=== PATIENT | female | born 1990 | race American Indian/Alaskan Native ===

== ENCOUNTER 2021-03-16 15:39 | Outpatient (CLI) | payer MEDICAID ==
[2021-03-16] MEDS ORDERED: LACTATED RINGERS 1,000 ML IV SCH (16:15)
[2021-03-16 16:23] VITALS: BP 136/60
== END 2021-03-16 17:05 | disposition home or self-care (01) ==
LOC: TRG 15:39 → APU 15:42 → TRG 17:05
PROVIDERS: ATTEND Obstetrics & Gynecology
DX: Z34.93 Encounter for supervision of normal pregnancy, unspecified, third trimester (principal); Z3A.30 30 weeks gestation of pregnancy
CPT/HCPCS: 59025

== ENCOUNTER 2021-03-27 13:08 | Outpatient (CLI) | payer MEDICAID ==
[2021-03-27 16:45] VITALS: BP 133/79
== END 2021-03-27 17:00 | disposition home or self-care (01) ==
LOC: TRG 13:08 → LAB 13:08 → APU 16:34 → TRG 17:00
PROVIDERS: ATTEND Obstetrics & Gynecology
DX: O26.893 Other specified pregnancy related conditions, third trimester (principal); Z3A.31 31 weeks gestation of pregnancy; Z67.11 Type A blood, Rh negative
CPT/HCPCS: 86850; 86900; 86901; 96372; J2790

== ENCOUNTER 2021-04-19 11:07 | Outpatient (CLI) | payer MEDICAID ==
[2021-04-19] MEDS ORDERED: LACTATED RINGERS 1,000 ML IV ONE (11:33)
[2021-04-19 12:37] LABS: Bilirubin,Urine NEG (Negative); Blood,Urine NEG (Negative); Color,Urine Yellow (Yellow); Mucus,Urine FEW /HPF; Protein,Urine <15 mg/dL mg/dL (Negative); Urobilinogen,Urine < 2.0 mg/dL (<2.0)
[2021-04-19 15:16] VITALS: BP 117/60
== END 2021-04-19 15:20 | disposition home or self-care (01) ==
LOC: TRG 11:07 → APU 11:11 → TRG 15:20
PROVIDERS: ATTEND Obstetrics & Gynecology
DX: O47.1 False labor at or after 37 completed weeks of gestation (principal); Z3A.35 35 weeks gestation of pregnancy
CPT/HCPCS: 59025; 81001

== ENCOUNTER 2021-05-05 11:31 | Outpatient (CLI) | payer MEDICAID ==
[2021-05-05] MEDS ORDERED: ACETAMINOPHEN 500 MG TAB PO ONE (11:51)
[2021-05-05] MEDS: LACTATED RINGERS 1,000 ML IV SCH ×3 (12:01→16:42)
[2021-05-05] MEDS ORDERED: ACETAMINOPHEN 325 MG TAB PO PRN (13:07)
[2021-05-05] MEDS ORDERED: DOCUSATE SODIUM 100 MG CAP PO PRN (14:07)
[2021-05-05 14:18] LABS: Basophils % (Auto) 0.1 % (0.0-1.8); Hematocrit 32.4 % (30.3-42.9); Hemoglobin 11.3 gm/dl (10.1-14.3); Lymphocytes # (Auto) 0.9 K/mm3 (1.2-5.4); Lymphocytes % (Auto) 5.8 % (13.4-35.0); Mean Corpuscular HGB Conc 35 % (30-34); Mean Corpuscular Volume 92 fl (79-97); Monocytes # (Auto) 1.2 K/mm3 (0.0-0.8); Monocytes % (Auto) 7.6 % (0.0-7.3); Platelet Count 159 K/mm3 (140-440); Red Blood Count 3.53 M/mm3 (3.65-5.03); Red Cell Distribution Width 14.2 % (13.2-15.2)
[2021-05-05 14:42] LABS: Alanine Aminotransferase 10 units/L (7-56); Albumin 3.5 g/dL (3.9-5); Blood Urea Nitrogen 8 mg/dL (7-17); Calcium 9.6 mg/dL (8.4-10.2); Hemolysis Index 3
[2021-05-05 14:46] LABS: BUN/Creatinine Ratio 11
[2021-05-05] MEDS ORDERED: BUTORPHANOL 2 MG/1 ML INJ IV PRN (16:03)
[2021-05-05 19:04] LABS: Bilirubin,Urine NEG (Negative); Blood,Urine SM (Negative); Color,Urine Straw (Yellow); Hyaline Casts,Urine 1 /LPF; Mucus,Urine FEW /HPF; Protein,Urine <15 mg/dL mg/dL (Negative); RBC,Urine < 1.0 /HPF (0.0-6.0); Urobilinogen,Urine < 2.0 mg/dL (<2.0); WBC,Urine < 1.0 /HPF (0.0-6.0)
[2021-05-06] MEDS: LACTATED RINGERS 1,000 ML IV SCH (00:26)
[2021-05-06] MEDS ORDERED: PRENATAL VIT27-FE FUMARATE-FOLIC ACID VIT TAB PO SCH (10:00)
--- NOTE | 2021-05-06 12:41 | Progress Note ---
Assessment and Plan 30-year-old female who presented with complaint of fever of unknown origin and cardiac. Symptoms have improved overnight. We will proceed with discharge of the patient and follow-up with her regular doctor as scheduled. Subjective - Subjective Date of service: 05/06/21 Principal diagnosis: Fever, tachcardia Interval history: Patient is a 30-year-old female who was admitted yesterday for observation secondary to fever of unknown origin and tachycardia. Patient has had no fevers and over 12 hours and the heart rate has been within normal range. Patient has no complaints on today. Her Covid swab is pending. Patient reports: movement normal Objective - Vital Signs Vital Signs: Vital Signs - 12hr 05/06/21 05/06/21 05/06/21 00:41 00:46 00:51 Temperature Pulse Rate 101 H 101 H 101 H Blood Pressure O2 Sat by Pulse 97 98 97 Oximetry 05/06/21 05/06/21 05/06/21 00:56 01:01 01:06 Temperature Pulse Rate 91 H 89 90 Blood Pressure O2 Sat by Pulse 98 98 97 Oximetry 05/06/21 05/06/21 05/06/21 01:11 01:14 01:16 Temperature Pulse Rate 92 H 80 90 Blood Pressure 91/50 O2 Sat by Pulse 97 96 Oximetry 05/06/21 05/06/21 05/06/21 01:21 01:26 01:31 Temperature Pulse Rate 94 H 88 89 Blood Pressure O2 Sat by Pulse 96 97 96 Oximetry 05/06/21 05/06/21 05/06/21 01:36 01:37 01:41 Temperature Pulse Rate 89 90 94 H Blood Pressure O2 Sat by Pulse 94 94 96 Oximetry 05/06/21 05/06/21 05/06/21 01:46 01:51 01:56 Temperature Pulse Rate 93 H 86 92 H Blood Pressure O2 Sat by Pulse 97 97 97 Oximetry 05/06/21 05/06/21 05/06/21 02:01 02:06 02:11 Temperature Pulse Rate 95 H 91 H 92 H Blood Pressure O2 Sat by Pulse 97 98 98 Oximetry 05/06/21 05/06/21 05/06/21 02:13 02:16 02:21 Temperature Pulse Rate 93 H 90 91 H Blood Pressure 101/50 O2 Sat by Pulse 96 96 Oximetry 05/06/21 05/06/2105/06/21 02:26 02:31 02:36 Temperature Pulse Rate 88 89 92 H Blood Pressure O2 Sat by Pulse 97 97 98 Oximetry 05/06/21 05/06/21 05/06/21 02:41 02:46 02:51 Temperature Pulse Rate 96 H 89 92 H Blood Pressure O2 Sat by Pulse 97 97 97 Oximetry 05/06/21 05/06/21 05/06/21 02:56 03:01 03:06 Temperature Pulse Rate 87 88 92 H Blood Pressure O2 Sat by Pulse 97 97 97 Oximetry 05/06/21 05/06/21 05/06/21 03:11 03:13 03:23 Temperature Pulse Rate 90 90 107 H Blood Pressure 106/54 O2 Sat by Pulse 97 98 Oximetry 05/06/21 05/06/21 05/06/21 03:28 03:33 03:38 Temperature Pulse Rate 100 H 90 99 H Blood Pressure O2 Sat by Pulse 96 98 96 Oximetry 05/06/21 05/06/21 05/06/21 03:43 03:45 03:48 Temperature 99.2 F Pulse Rate 94 H 97 H Blood Pressure O2 Sat by Pulse 97 97 Oximetry 05/06/21 05/06/21 05/06/21 03:53 03:58 04:03 Temperature Pulse Rate 95 H 92 H 95 H Blood Pressure O2 Sat by Pulse 97 96 97 Oximetry 05/06/21 05/06/21 05/06/21 04:08 04:13 04:18 Temperature Pulse Rate 92 H 87 91 H Blood Pressure 98/52 O2 Sat by Pulse 97 97 96 Oximetry 05/06/21 05/06/21 05/06/21 04:23 04:25 04:28 Temperature Pulse Rate 90 89 90 Blood Pressure O2 Sat by Pulse 95 93 95 Oximetry 05/06/21 05/06/21 05/06/21 04:31 04:33 04:36 Temperature Pulse Rate 91 H 91 H 91 H Blood Pressure O2 Sat by Pulse 94 95 94 Oximetry 05/06/21 05/06/21 05/06/21 04:38 04:42 04:43 Temperature Pulse Rate 90 87 90 Blood Pressure O2 Sat by Pulse 94 94 94 Oximetry 05/06/21 05/06/21 05/06/21 04:48 04:53 04:55 Temperature Pulse Rate 90 88 83 Blood Pressure O2 Sat by Pulse 94 96 94 Oximetry 05/06/21 05/06/21 05/06/21 04:58 05:00 05:03 Temperature Pulse Rate 89 88 85 Blood Pressure O2 Sat by Pulse 95 94 96 Oximetry 05/06/21 05/06/21 05/06/21 05:08 05:13 05:18 Temperature Pulse Rate 88 90 86 Blood Pressure 106/58 O2 Sat by Pulse 97 97 98 Oximetry 05/06/21 05/06/21 05/06/21 05:23 05:28 05:33 Temperature Pulse Rate 95 H 88 89 Blood Pressure O2 Sat by Pulse 97 97 98 Oximetry 05/06/21 05/06/21 05/06/21 05:37 05:38 05:43 Temperature Pulse Rate 100 H 100 H 93 H Blood Pressure O2 Sat by Pulse 94 98 96 Oximetry 05/06/21 05/06/21 05/06/21 05:48 05:53 05:58 Temperature Pulse Rate 97 H 99 H 95 H Blood Pressure O2 Sat by Pulse 98 97 97 Oximetry 05/06/21 05/06/21 05/06/21 06:03 06:08 06:13 Temperature Pulse Rate 95 H 97 H 82 Blood Pressure O2 Sat by Pulse 98 98 97 Oximetry 05/06/21 05/06/21 05/06/21 06:15 06:18 06:23 Temperature Pulse Rate 73 94 H 85 Blood Pressure 119/64 O2 Sat by Pulse 94 98 96 Oximetry 05/06/21 05/06/21 05/06/21 06:28 06:33 06:38 Temperature Pulse Rate 99 H 96 H 93 H Blood Pressure O2 Sat by Pulse 98 98 96 Oximetry 05/06/21 05/06/21 05/06/21 06:43 06:48 06:53 Temperature Pulse Rate 90 93 H 90 Blood Pressure O2 Sat by Pulse 97 97 97 Oximetry 05/06/21 05/06/21 05/06/21 06:58 07:03 07:08 Temperature Pulse Rate 90 88 79 Blood Pressure O2 Sat by Pulse 97 98 96 Oximetry 05/06/21 05/06/21 05/06/21 07:13 07:18 07:23 Temperature Pulse Rate 85 84 83 Blood Pressure 121/58 O2 Sat by Pulse 95 97 97 Oximetry 05/06/21 05/06/21 05/06/21 07:28 07:33 07:38 Temperature Pulse Rate 75 67 85 Blood Pressure O2 Sat by Pulse 97 97 98 Oximetry 05/06/21 05/06/21 05/06/21 08:11 08:13 08:14 Temperature Pulse Rate 88 88 92 H Blood Pressure 110/67 120/57 O2 Sat by Pulse 99 Oximetry 05/06/21 05/06/21 05/06/21 08:16 08:21 08:26 Temperature Pulse Rate 80 84 92 H Blood Pressure O2 Sat by Pulse 96 97 98 Oximetry 05/06/21 05/06/21 05/06/21 08:31 08:36 08:41 Temperature Pulse Rate 73 82 73 Blood Pressure O2 Sat by Pulse 98 98 97 Oximetry 05/06/21 05/06/21 05/06/21 08:46 08:51 08:56 Temperature Pulse Rate 75 86 76 Blood Pressure O2 Sat by Pulse 97 95 96 Oximetry 05/06/21 05/06/21 05/06/21 09:01 09:06 09:11 Temperature Pulse Rate 78 84 80 Blood Pressure O2 Sat by Pulse 96 95 99 Oximetry 05/06/21 05/06/21 05/06/21 09:15 09:16 09:21 Temperature Pulse Rate 76 78 72 Blood Pressure 97/54 O2 Sat by Pulse 96 97 Oximetry 05/06/21 05/06/21 05/06/21 09:26 09:28 09:31 Temperature Pulse Rate 82 69 79 Blood Pressure O2 Sat by Pulse 97 94 95 Oximetry 05/06/21 05/06/21 05/06/21 09:34 09:36 09:41 Temperature Pulse Rate 72 78 84 Blood Pressure O2 Sat by Pulse 93 96 98 Oximetry 05/06/21 05/06/21 05/06/21 09:46 09:51 09:56 Temperature Pulse Rate 78 82 81 Blood Pressure O2 Sat by Pulse 95 97 97 Oximetry 05/06/21 05/06/21 05/06/21 10:01 10:06 10:11 Temperature Pulse Rate 73 85 77 Blood Pressure O2 Sat by Pulse 97 98 98 Oximetry 05/06/21 05/06/21 05/06/21 10:13 10:16 10:21 Temperature Pulse Rate 80 70 79 Blood Pressure 105/51 O2 Sat by Pulse 99 97 Oximetry 05/06/21 05/06/21 05/06/21 10:26 10:31 10:36 Temperature Pulse Rate 73 72 78 Blood Pressure O2 Sat by Pulse 97 98 98 Oximetry 05/06/21 05/06/21 05/06/21 10:41 10:51 10:56 Temperature Pulse Rate 71 78 84 Blood Pressure O2 Sat by Pulse 98 98 97 Oximetry 05/06/21 05/06/21 05/06/21 11:01 11:06 11:11 Temperature Pulse Rate 75 74 78 Blood Pressure O2 Sat by Pulse 97 98 97 Oximetry 05/06/21 05/06/21 05/06/21 11:13 11:16 11:21 Temperature Pulse Rate 72 67 69 Blood Pressure 100/61 O2 Sat by Pulse 97 99 Oximetry 05/06/21 05/06/21 05/06/21 11:26 11:31 11:36 Temperature Pulse Rate 71 84 80 Blood Pressure O2 Sat by Pulse 99 99 98 Oximetry 05/06/21 05/06/21 05/06/21 11:41 11:46 11:51 Temperature Pulse Rate 82 66 75 Blood Pressure O2 Sat by Pulse 98 99 99 Oximetry 05/06/21 05/06/21 05/06/21 11:56 12:01 12:06 Temperature Pulse Rate 76 74 81 Blood Pressure O2 Sat by Pulse 99 98 98 Oximetry 05/06/21 05/06/21 05/06/21 12:11 12:13 12:16 Temperature Pulse Rate 73 75 81 Blood Pressure 103/64 O2 Sat by Pulse 99 99 Oximetry 05/06/21 05/06/21 05/06/21 12:21 12:26 12:31 Temperature Pulse Rate 75 70 72 Blood Pressure O2 Sat by Pulse 98 99 99 Oximetry 05/06/21 12:36 Temperature Pulse Rate 68 Blood Pressure O2 Sat by Pulse 98 Oximetry - Exam Lungs: Clear to auscultation, Normal air movement Abdomen: Present: normal appearance, soft, normal bowel sounds Uterus: Present: firm FHR: auscultation normal Cervical Dilatation: 0 - Labs Labs: Abnormal Labs 05/05/21 05/05/21 13:59 13:59 WBC 15.6 H RBC 3.53 L MCHC 35 H Lymph % (Auto) 5.8 L [place] % (Auto) 7.6 H Lymph # (Auto) 0.9 L [place] # (Auto) 1.2 H Seg Neutrophils % 86.5 H Seg Neutrophils # 13.4 H Sodium 132 L Carbon Dioxide 16 L Albumin 3.5 L Laboratory Results - last 24 hr 05/05/21 05/05/21 05/05/21 13:59 13:59 13:59 WBC 15.6 H RBC 3.53 L Hgb 11.3 Hct 32.4 MCV 92 MCH 32 MCHC 35 H RDW 14.2 Plt Count 159 Lymph % (Auto) 5.8 L [place] % (Auto) 7.6 H Eos % (Auto) 0.0 Baso % (Auto) 0.1 Lymph # (Auto) 0.9 L [place] # (Auto) 1.2 H Eos # (Auto) 0.0 Baso # (Auto) 0.0 Seg Neutrophils % 86.5 H Seg Neutrophils # 13.4 H Sodium 132 L Potassium 3.9 Chloride 99.5 Carbon Dioxide 16 L Anion Gap 20 BUN 8 Creatinine 0.7 Estimated GFR > 60 BUN/Creatinine Ratio 11 Glucose 77 Calcium 9.6 Total Bilirubin 0.40 AST 22 ALT 10 Alkaline Phosphatase 106 Total Protein 6.5 Albumin 3.5 L Albumin/Globulin Ratio 1.2 Urine Color Urine Turbidity Urine pH Ur Specific [place] Urine Protein Urine Glucose (UA) Urine Ketones Urine Blood Urine Nitrite Urine Bilirubin Urine Urobilinogen Ur Leukocyte Esterase Urine WBC (Auto) Urine RBC (Auto) U Epithel Cells (Auto) Hyaline Casts Urine Mucus Blood Type A NEGATIVE Antibody Screen Positive Antibody Identification Anti-D (Passively Aquired) 05/05/21 18:42 WBC RBC Hgb Hct MCV MCH MCHC RDW Plt Count Lymph % (Auto) [place] % (Auto) Eos % (Auto) Baso % (Auto) Lymph # (Auto) [place] # (Auto) Eos # (Auto) Baso # (Auto) Seg Neutrophils % Seg Neutrophils # Sodium Potassium Chloride Carbon Dioxide Anion Gap BUN Creatinine Estimated GFR BUN/Creatinine Ratio Glucose Calcium Total Bilirubin AST ALT Alkaline Phosphatase Total Protein Albumin Albumin/Globulin Ratio Urine Color Straw Urine Turbidity Clear Urine pH 6.0 Ur Specific [place] 1.004 Urine Protein <15 mg/dl Urine Glucose (UA) Neg Urine Ketones 20 Urine Blood Sm Urine Nitrite Neg Urine Bilirubin Neg Urine Urobilinogen < 2.0 Ur Leukocyte Esterase Neg Urine WBC (Auto) < 1.0 Urine RBC (Auto) < 1.0 U Epithel Cells (Auto) 3.0 Hyaline Casts 1 Urine Mucus Few Blood Type Antibody Screen Antibody Identification
--- NOTE | 2021-05-06 13:38 | Discharge Summary ---
Providers - Providers Date of Admission: 05/05/2021 Date of discharge: 05/06/21 Attending physician: ROSAURA RAMIREZ Primary care physician: ROSAURA RAMIREZ Hospitalization Reason for admission: other (fever of unknown origin, tachycardia) Episiotomy: none Other procedures: none complications: none Discharge diagnosis: other (fever) Hospital course: resolved Condition at discharge: Stable Disposition: DC-01 TO HOME OR SELFCARE Plan - Provider Discharge Summary Activity: routine Diet: routine Instructions: routine Additional instructions: [] Smoking cessation referral if applicable(refer to patient education folder for contact #) [] Refer to [facility]'s [facility] Booklet Call your doctor immediately for: * Fever > 100.5 * Heavy vaginal bleeding ( >1 pad per hour) * Severe persistent headache * Shortness of breath * Reddened, hot, painful area to leg or breast * Drainage or odor from incision. * Keep incision clean and dry at all times and follow doctor's instructions regarding bathing/showering - Follow up plan Follow up: ROSAURA RAMIREZ MD [Primary Care Provider] - 7 Days
[2021-05-06 14:05] VITALS: BP 111/65
== END 2021-05-06 15:06 | disposition home or self-care (01) ==
LOC: TRG 11:31 → APU 11:33 → LD 13:37 → TRG 05-06 15:06
PROVIDERS: ATTEND Obstetrics & Gynecology
DX: O62.9 Abnormality of forces of labor, unspecified (principal); O24.410 Gestational diabetes mellitus in pregnancy, diet controlled; O26.893 Other specified pregnancy related conditions, third trimester; R68.83 Chills (without fever); O36.8330 Maternal care for abnormalities of the fetal heart rate or rhythm, third trimester, not applicable or unspecified; Z3A.37 37 weeks gestation of pregnancy; Z20.822 Contact with and (suspected) exposure to COVID-19
CPT/HCPCS: 36415; 80053; 81001; 85025; 86850; 86870; 86900; 86901; 87040; 96360; 96361; J7120; U0003

== ENCOUNTER 2021-05-09 20:17 | Inpatient (IN) | payer MEDICAID ==
[2021-05-09] MEDS ORDERED: ePHEDrine SULFATE 50 MG/1 ML INJ IV PRN (21:21)
[2021-05-09] MEDS ORDERED: DINOPROSTONE 10 MG VAG SUPP VG ONE (21:21)
[2021-05-09] MEDS ORDERED: miSOPROStol 200 MCG TAB PR PRN (21:21)
[2021-05-09] MEDS ORDERED: NALOXONE 0.4 MG/1 ML INJ IV PRN (21:21)
[2021-05-09] MEDS ORDERED: fentaNYL 100 MCG/2 ML INJ IV PRN (21:21)
[2021-05-09] MEDS ORDERED: OXYTOCIN 10 UNIT/1 ML INJ IM PRN (21:21)
[2021-05-09] MEDS ORDERED: METHYLERGONOVINE MALEATE 0.2 MG/ML VIAL IM PRN (21:21)
[2021-05-09] MEDS ORDERED: LOPERAMIDE 2 MG CAP PO PRN (21:21)
[2021-05-09] MEDS ORDERED: MINERAL OIL 30 ML ORAL LIQD PO PRN (21:21)
[2021-05-09] MEDS ORDERED: ONDANSETRON 4 MG/2 ML INJ IV PRN (21:21)
[2021-05-09] MEDS ORDERED: CARBOPROST TROMETHAMINE 250 MCG/1 ML INJ IM PRN (21:21)
[2021-05-09] MEDS ORDERED: TERBUTALINE 1 MG/1 ML INJ SUB-Q PRN ×2 (21:21→21:39)
[2021-05-09] MEDS ORDERED: BUTORPHANOL 2 MG/1 ML INJ IV PRN ×2 (21:21)
[2021-05-09] MEDS ORDERED: ACETAMINOPHEN 325 MG TAB PO PRN (21:21)
[2021-05-09] MEDS ORDERED: LIDOCAINE (2%) 20 MG/1 ML VIAL 20 ML MDV INFILTRATI ONE (21:21)
[2021-05-09] MEDS ORDERED: INSULIN REGULAR, HUMAN 100 UNITS/1 ML SUB-Q PRN (21:26)
[2021-05-09] MEDS ORDERED: DEXTROSE 50% IN WATER (25GM) 50 ML SYRINGE IV PRN (21:26)
[2021-05-09] MEDS ORDERED: AMPICILLIN/NS 2 GM/100 ML 2 GM/100 ML BAG IV ONE (21:39)
[2021-05-09 21:41] LABS: Hematocrit 33.3 % (30.3-42.9); Hemoglobin 11.3 gm/dl (10.1-14.3); Mean Corpuscular HGB Conc 34 % (30-34); Mean Corpuscular Volume 93 fl (79-97); Platelet Count 177 K/mm3 (140-440); Red Blood Count 3.59 M/mm3 (3.65-5.03); Red Cell Distribution Width 14.1 % (13.2-15.2)
[2021-05-09] MEDS: LACTATED RINGERS 1,000 ML IV SCH (22:00)
[2021-05-09] MEDS ORDERED: OXYTOCIN DRIP 30 UNITS/500 ML BAG IV SCH ×3 (22:00)
[2021-05-10] MEDS ORDERED: AMPICILLIN/NS 1 GM/50 ML 1 GM/50 ML BAG IV SCH (02:00)
--- NOTE | 2021-05-10 15:14 | Progress Note ---
Assessment and Plan HD 1 for this induction for type 2 dm. Pt doing well. Pt received cervidil overnight and changed cervix from closed 1 cm dilated. Pt may shower and eat. She is now going to start on pitocin. Subjective - Subjective Date of service: 05/10/21 Principal diagnosis: type 2 diabetes Patient reports: contractions Objective - Vital Signs Vital Signs: Vital Signs - 12hr 05/10/21 05/10/21 05/10/21 03:08 03:20 07:19 Temperature 97.5 F L Pulse Rate 60 66 Respiratory 18 Rate Blood Pressure 107/59 109/64 05/10/21 07:56 Temperature 97.8 F Pulse Rate Respiratory Rate Blood Pressure - Exam Breasts: deferred Cardiovascular: Regular rate, Normal S1, Normal S2 Lungs: Clear to auscultation, Normal air movement Abdomen: Present: normal appearance, soft, normal bowel sounds Uterus: Present: normal, firm FHR: auscultation normal Cervical Dilatation: 1 Cervical Effacement Percentage: 50 Uterine Contraction Pattern: Irregular Uterine Contraction Intensity: Mild - Labs Labs: Abnormal Labs 05/09/21 21:15 RBC 3.59 L Laboratory Results - last 24 hr 05/09/21 05/09/21 05/09/21 21:15 21:15 21:25 WBC 8.9 RBC 3.59 L Hgb 11.3 Hct 33.3 MCV 93 MCH 32 MCHC 34 RDW 14.1 Plt Count 177 POC Glucose 89 Syphilis IgG Antibody Nonreactive Blood Type Antibody Screen Antibody Identification 05/09/21 05/10/21 05/10/21 23:19 03:10 06:31 WBC RBC Hgb Hct MCV MCH MCHC RDW Plt Count POC Glucose 70 72 Syphilis IgG Antibody Blood Type A NEGATIVE Antibody Screen Positive Antibody Identification Anti-D (Passively Aquired) 05/10/21 05/10/21 10:12 14:44 WBC RBC Hgb Hct MCV MCH MCHC RDW Plt Count POC Glucose 75 99 Syphilis IgG Antibody Blood Type Antibody Screen Antibody Identification
[2021-05-10] MEDS: LACTATED RINGERS 1,000 ML IV SCH (22:08)
[2021-05-11] MEDS: LACTATED RINGERS 1,000 ML IV SCH (12:28)
--- NOTE | 2021-05-11 12:59 | Progress Note ---
Assessment and Plan - Patient Problems (1) Encounter for induction of labor Current Visit: Yes Status: Acute Plan to address problem: Stop Pitocin May shower and eat, then Initiate Cytotec 50 mg po every 4 hrs x 4 doses as tolerated Pain meds as desired Anticipate (2) Gestational diabetes Current Visit: Yes Status: Acute Qualifiers: Gestational diabetes mellitus control: diet-controlled Trimester: third trimester Qualified Code(s): O24.410 - Gestational diabetes mellitus in , diet controlled Plan to address problem: Continue to monitor blood glucose levels per orders Subjective - Subjective Date of service: 05/11/21 Principal diagnosis: IOL secondary to type 2 diabetes Interval history: HD 1 for this induction for type 2 dm. Pt doing well. Pt received cervidil overnight and changed cervix from closed 1 cm dilated. Pt may shower and eat. She is now on pitocin. Patient reports: movement normal, contractions (irregular), no new complaints, no loss of fluid, no vaginal bleeding Objective - Vital Signs Vital Signs: Vital Signs - 12hr 05/11/21 05/11/21 05/11/21 01:00 01:05 01:10 Temperature Pulse Rate 54 L 67 64 Respiratory Rate Blood Pressure Blood Pressure [Left] O2 Sat by Pulse 98 98 99 Oximetry 05/11/21 05/11/21 05/11/21 01:15 01:20 01:24 Temperature 98.2 F Pulse Rate 53 L 57 L Respiratory 20 Rate Blood Pressure Blood Pressure [Left] O2 Sat by Pulse 100 99 Oximetry 05/11/21 05/11/21 05/11/21 01:25 01:30 01:35 Temperature Pulse Rate 56 L 56 L 56 L Respiratory Rate Blood Pressure Blood Pressure [Left] O2 Sat by Pulse 99 99 99 Oximetry 05/11/21 05/11/21 05/11/21 01:40 01:45 01:50 Temperature Pulse Rate 62 56 L 58 L Respiratory Rate Blood Pressure Blood Pressure [Left] O2 Sat by Pulse 98 98 99 Oximetry 05/11/21 05/11/21 05/11/21 01:55 02:00 02:05 Temperature Pulse Rate 60 62 74 Respiratory Rate Blood Pressure Blood Pressure [Left] O2 Sat by Pulse 98 98 100 Oximetry 05/11/21 05/11/21 05/11/21 02:10 02:15 02:20 Temperature Pulse Rate 60 57 L 54 L Respiratory Rate Blood Pressure 99/63 Blood Pressure [Left] O2 Sat by Pulse 98 98 99 Oximetry 05/11/21 05/11/21 05/11/21 02:25 02:30 02:35 Temperature Pulse Rate 50 L 64 60 Respiratory Rate Blood Pressure Blood Pressure [Left] O2 Sat by Pulse 98 97 98 Oximetry 05/11/21 05/11/21 05/11/21 02:40 02:45 02:50 Temperature Pulse Rate 63 67 65 Respiratory Rate Blood Pressure Blood Pressure [Left] O2 Sat by Pulse 98 97 97 Oximetry 05/11/21 05/11/21 05/11/21 02:55 03:00 03:05 Temperature Pulse Rate 67 68 60 Respiratory Rate Blood Pressure Blood Pressure [Left] O2 Sat by Pulse 97 98 98 Oximetry 05/11/21 05/11/21 05/11/21 03:10 03:15 03:20 Temperature Pulse Rate 57 L 54 L 61 Respiratory Rate Blood Pressure Blood Pressure [Left] O2 Sat by Pulse 98 97 98 Oximetry 05/11/21 05/11/21 05/11/21 03:25 03:30 03:35 Temperature Pulse Rate 64 58 L 59 L Respiratory Rate Blood Pressure Blood Pressure [Left] O2 Sat by Pulse 98 98 98 Oximetry 05/11/21 05/11/21 05/11/21 03:40 03:45 03:50 Temperature Pulse Rate 75 62 51 L Respiratory Rate Blood Pressure 113/59 Blood Pressure [Left] O2 Sat by Pulse 98 97 98 Oximetry 05/11/21 05/11/21 05/11/21 03:55 03:59 04:00 Temperature Pulse Rate 82 58 L 70 Respiratory Rate Blood Pressure Blood Pressure [Left] O2 Sat by Pulse 98 94 97 Oximetry 05/11/21 05/11/21 05/11/21 04:05 04:10 04:15 Temperature Pulse Rate 74 65 63 Respiratory Rate Blood Pressure Blood Pressure [Left] O2 Sat by Pulse 98 98 98 Oximetry 05/11/21 05/11/21 05/11/21 04:20 04:25 04:30 Temperature Pulse Rate 58 L 73 73 Respiratory Rate Blood Pressure Blood Pressure [Left] O2 Sat by Pulse 98 98 98 Oximetry 05/11/21 05/11/21 05/11/21 04:35 04:40 04:45 Temperature Pulse Rate 69 67 60 Respiratory Rate Blood Pressure Blood Pressure [Left] O2 Sat by Pulse 98 98 98 Oximetry 05/11/21 05/11/21 05/11/21 04:50 04:55 05:00 Temperature Pulse Rate 69 55 L 60 Respiratory Rate Blood Pressure Blood Pressure [Left] O2 Sat by Pulse 98 98 98 Oximetry 05/11/21 05/11/21 05/11/21 05:05 05:10 05:15 Temperature Pulse Rate 54 L 65 57 L Respiratory Rate Blood Pressure Blood Pressure [Left] O2 Sat by Pulse 99 99 100 Oximetry 05/11/21 05/11/21 05/11/21 05:20 05:25 05:30 Temperature Pulse Rate 57 L 55 L 54 L Respiratory Rate Blood Pressure 106/56 Blood Pressure [Left] O2 Sat by Pulse 99 98 99 Oximetry 05/11/21 05/11/21 05/11/21 05:35 05:40 05:45 Temperature Pulse Rate 63 56 L 65 Respiratory Rate Blood Pressure Blood Pressure [Left] O2 Sat by Pulse 98 98 98 Oximetry 05/11/21 05/11/21 05/11/21 05:50 05:55 06:00 Temperature Pulse Rate 53 L 57 L 74 Respiratory Rate Blood Pressure Blood Pressure [Left] O2 Sat by Pulse 98 97 99 Oximetry 05/11/21 05/11/21 05/11/21 06:05 06:10 06:15 Temperature Pulse Rate 63 60 56 L Respiratory Rate Blood Pressure Blood Pressure [Left] O2 Sat by Pulse 98 98 98 Oximetry 05/11/21 05/11/21 05/11/21 06:20 06:24 06:25 Temperature Pulse Rate 63 61 67 Respiratory Rate Blood Pressure Blood Pressure [Left] O2 Sat by Pulse 97 89 99 Oximetry 05/11/21 05/11/21 05/11/21 06:30 06:35 06:46 Temperature Pulse Rate 72 67 84 Respiratory Rate Blood Pressure Blood Pressure [Left] O2 Sat by Pulse 98 98 100 Oximetry 05/11/21 05/11/21 05/11/21 06:50 06:51 06:56 Temperature Pulse Rate 83 97 H 71 Respiratory Rate Blood Pressure 117/65 Blood Pressure [Left] O2 Sat by Pulse 99 99 Oximetry 05/11/21 05/11/21 05/11/21 07:01 07:06 07:11 Temperature Pulse Rate 60 56 L 56 L Respiratory Rate Blood Pressure Blood Pressure [Left] O2 Sat by Pulse 100 98 99 Oximetry 05/11/21 05/11/21 05/11/21 07:16 07:17 07:22 Temperature 97.9 F Pulse Rate 98 H 63 77 Respiratory 14 Rate Blood Pressure 109/59 Blood Pressure 109/59 [Left] O2 Sat by Pulse 99 99 100 Oximetry 05/11/21 05/11/21 05/11/21 07:27 07:32 07:37 Temperature Pulse Rate 54 L 56 L 52 L Respiratory Rate Blood Pressure Blood Pressure [Left] O2 Sat by Pulse 99 99 99 Oximetry 05/11/21 05/11/21 05/11/21 07:42 07:47 07:52 Temperature Pulse Rate 69 65 60 Respiratory Rate Blood Pressure Blood Pressure [Left] O2 Sat by Pulse 98 99 99 Oximetry 05/11/21 05/11/21 05/11/21 07:57 08:02 08:07 Temperature Pulse Rate 58 L 52 L 52 L Respiratory Rate Blood Pressure Blood Pressure [Left] O2 Sat by Pulse 99 100 99 Oximetry 05/11/21 05/11/21 05/11/21 08:12 08:17 08:20 Temperature Pulse Rate 61 55 L 63 Respiratory Rate Blood Pressure 110/59 Blood Pressure [Left] O2 Sat by Pulse 99 99 Oximetry 05/11/21 05/11/21 05/11/21 08:22 08:27 08:32 Temperature Pulse Rate 59 L 58 L 67 Respiratory Rate Blood Pressure Blood Pressure [Left] O2 Sat by Pulse 98 98 100 Oximetry 05/11/21 05/11/21 05/11/21 08:37 08:42 08:47 Temperature Pulse Rate 56 L 59 L 54 L Respiratory Rate Blood Pressure Blood Pressure [Left] O2 Sat by Pulse 98 99 98 Oximetry 05/11/21 05/11/21 05/11/21 08:52 08:57 09:02 Temperature Pulse Rate 52 L 54 L 51 L Respiratory Rate Blood Pressure Blood Pressure [Left] O2 Sat by Pulse 98 99 97 Oximetry 05/11/21 05/11/21 05/11/21 09:07 09:12 09:17 Temperature Pulse Rate 51 L 53 L 54 L Respiratory Rate Blood Pressure Blood Pressure [Left] O2 Sat by Pulse 98 98 100 Oximetry 05/11/21 05/11/21 05/11/21 09:22 09:27 09:32 Temperature Pulse Rate 48 L 49 L 55 L Respiratory Rate Blood Pressure Blood Pressure [Left] O2 Sat by Pulse 98 98 97 Oximetry 05/11/21 05/11/21 05/11/21 09:37 09:42 09:47 Temperature Pulse Rate 51 L 53 L 56 L Respiratory Rate Blood Pressure Blood Pressure [Left] O2 Sat by Pulse 98 98 98 Oximetry 05/11/21 05/11/21 05/11/21 09:51 09:52 09:57 Temperature Pulse Rate 53 L 59 L 61 Respiratory Rate Blood Pressure 109/73 Blood Pressure [Left] O2 Sat by Pulse 98 99 Oximetry 05/11/21 05/11/21 05/11/21 10:02 10:07 10:12 Temperature Pulse Rate 64 55 L 54 L Respiratory Rate Blood Pressure Blood Pressure [Left] O2 Sat by Pulse 99 100 99 Oximetry 05/11/21 05/11/21 05/11/21 10:17 10:23 10:28 Temperature Pulse Rate 53 L 52 L 56 L Respiratory Rate Blood Pressure Blood Pressure [Left] O2 Sat by Pulse 100 100 99 Oximetry 05/11/21 05/11/21 05/11/21 10:33 10:38 10:43 Temperature Pulse Rate 61 67 61 Respiratory Rate Blood Pressure Blood Pressure [Left] O2 Sat by Pulse 100 100 99 Oximetry 05/11/21 05/11/21 05/11/21 10:48 10:53 10:58 Temperature Pulse Rate 60 75 57 L Respiratory Rate Blood Pressure Blood Pressure [Left] O2 Sat by Pulse 98 99 99 Oximetry 05/11/21 05/11/21 05/11/21 11:03 11:08 11:13 Temperature Pulse Rate 57 L 56 L 56 L Respiratory Rate Blood Pressure Blood Pressure [Left] O2 Sat by Pulse 99 99 99 Oximetry 05/11/21 05/11/21 05/11/21 11:18 11:20 11:23 Temperature Pulse Rate 55 L 60 66 Respiratory Rate Blood Pressure 127/78 Blood Pressure [Left] O2 Sat by Pulse 98 100 Oximetry 05/11/21 05/11/21 05/11/21 11:28 11:33 11:38 Temperature Pulse Rate 60 58 L 59 L Respiratory Rate Blood Pressure Blood Pressure [Left] O2 Sat by Pulse 99 99 99 Oximetry 05/11/21 05/11/21 05/11/21 11:43 11:48 11:53 Temperature Pulse Rate 59 L 61 59 L Respiratory Rate Blood Pressure Blood Pressure [Left] O2 Sat by Pulse 98 99 99 Oximetry 05/11/21 05/11/21 05/11/21 11:58 12:03 12:08 Temperature Pulse Rate 55 L 59 L 59 L Respiratory Rate Blood Pressure Blood Pressure [Left] O2 Sat by Pulse 99 99 98 Oximetry 05/11/21 05/11/21 05/11/21 12:13 12:18 12:23 Temperature Pulse Rate 59 L 59 L 56 L Respiratory Rate Blood Pressure Blood Pressure [Left] O2 Sat by Pulse 99 98 98 Oximetry 05/11/21 05/11/21 05/11/21 12:28 12:33 12:38 Temperature Pulse Rate 64 60 90 Respiratory Rate Blood Pressure Blood Pressure [Left] O2 Sat by Pulse 100 100 99 Oximetry 05/11/21 05/11/21 05/11/21 12:43 12:48 12:50 Temperature Pulse Rate 60 61 55 L Respiratory Rate Blood Pressure 118/72 Blood Pressure [Left] O2 Sat by Pulse 99 98 Oximetry 05/11/21 12:53 Temperature Pulse Rate 54 L Respiratory Rate Blood Pressure Blood Pressure [Left] O2 Sat by Pulse 98 Oximetry - Exam Breasts: deferred Cardiovascular: Regular rate Lungs: Normal air movement FHR: category 1 Uterine Contraction Monitor Mode: External Cervical Dilatation: 1.5 (per RN) Cervical Effacement Percentage: 60 station: -3 Uterine Contraction Frequency (min): 3-5 Uterine Contraction Pattern: Irregular Uterine Tone Measurement Phase: Resting Uterine Contraction Intensity: Mild Extremities: edema - Labs Labs: Abnormal Labs 05/09/21 05/11/21 21:15 05:05 RBC 3.59 L POC Glucose 69 L Laboratory Results - last 24 hr 05/10/21 05/10/21 05/10/21 14:44 21:04 Unknown POC Glucose 99 82 Coronavirus (PCR) Negative 05/11/21 05/11/21 05/11/21 01:22 05:05 10:48 POC Glucose 77 69 L 97 Coronavirus (PCR)
[2021-05-11] MEDS: miSOPROStol 25 MCG TAB PO PRN ×3 (14:50→22:52)
[2021-05-12] MEDS: LACTATED RINGERS 1,000 ML IV SCH ×2 (00:56→11:09)
[2021-05-12] MEDS: miSOPROStol 25 MCG TAB PO PRN (02:15)
--- NOTE | 2021-05-12 15:59 | History and Physical Report ---
History of Present Illness Date of examination: 05/12/21 Date of admission: 05/09/21 20:21 Chief complaint: scheduled induction for gestational diabetes History of present illness: Pt is a 30 year old -[place] female primigravida RAEGAN 05/23/21 at 38w3d who presented on 05/09/21 for induction of labor secondary to gestational diabetes. She has had care at [facility] with comanagment by [facility] complicated by aforementioned gestational diabetes- diet controlled, palpitations when supine s/p Cardiology consult, RH negative status with Rhogam administration on 03/23/21 and GBS positive status. She has received cervidil, low dose pitocin, and four doses of cytotec for cervical ripening since admission. Past History Past Medical History: diabetes (gestational, diet controlled) Past Surgical History: no surgical history Family/Genetic History: diabetes, heart disease Social history: - Obstetrical History Expected Date of Delivery: 05/23/21 Actual Gestation: 38 Week(s) 3 Day(s) : 1 Medications and Allergies Allergies Allergy/AdvReac Type Severity Reaction Status Date / Time No Known Allergies Allergy Verified 05/05/21 12:06 Home Medications Medication Instructions Recorded Confirmed Last Taken Type No Known Home Medications [No 05/10/21 05/10/21 Unknown History Reported Home Medications] Active Meds: Active Medications Acetaminophen (Acetaminophen 325 Mg Tab) 650 mg PO Q4H PRN PRN Reason: Pain, Mild (1-3) Butorphanol Tartrate (Butorphanol 2 Mg/1 Ml Inj) 1 mg IV Q2H PRN PRN Reason: Pain, Moderate(4-6) LABOR PAIN Last Admin: 05/10/21 05:12 Dose: 1 mg Documented by: Butorphanol Tartrate (Butorphanol 2 Mg/1 Ml Inj) 2 mg IV Q2H PRN PRN Reason: Pain , Severe (7-10) Carboprost Tromethamine (Carboprost Tromethamine 250 Mcg/1 Ml Inj) 250 mcg IM ONCE PRN PRN Reason: Uterine Bleeding Dextrose (Dextrose 50% In Water (25gm) 50 Ml Syringe) 50 ml IV Q30MIN PRN; Protocol PRN Reason: Hypoglycemia Ephedrine Sulfate (Ephedrine Sulfate 50 Mg/1 Ml Inj) 10 mg IV Q2M PRN PRN Reason: Hypotension Fentanyl (Fentanyl 100 Mcg/2 Ml Inj) 100 mcg IV Q2H PRN PRN Reason: Pain,Severe (7-10) LABOR PAIN Lactated Ringer's (Lactated Ringers) 1,000 mls @ 125 mls/hr IV DIRECT NUSRAT Last Admin: 05/12/21 11:09 Dose: 125 mls/hr Documented by: Oxytocin/Sodium Chloride (Pitocin/Ns 30 Unit/500ml) 30 units in 500 mls @ 40 mls/hr IV TITR NUSRAT; Protocol Ampicillin Sodium (Ampicillin/Ns 1 Gm/50 Ml) 1 gm in 50 mls @ 100 mls/hr IV Q4H NUSRAT; Protocol Last Admin: 05/10/21 14:40 Dose: 100 mls/hr Documented by: Insulin Human Regular (Insulin Regular, Human 100 Units/1 Ml) 0 units SUB-Q Q4H PRN; Protocol PRN Reason: Hyperglycemia Loperamide HCl (Loperamide 2 Mg Cap) 2 mg PO ONCE PRN PRN Reason: give with Hemabate Methylergonovine Maleate (Methylergonovine Maleate 0.2 Mg/Ml Vial) 0.2 mg IM ONCE PRN PRN Reason: Uterine Bleeding Mineral Oil (Mineral Oil 30 Ml Oral Liqd) 30 ml PO QHS PRN PRN Reason: Constipation Misoprostol (Misoprostol 200 Mcg Tab) 800 mcg WI ONCE PRN PRN Reason: Uterine Bleeding Naloxone HCl (Naloxone 0.4 Mg/1 Ml Inj) 0.1 mg IV Q2MIN PRN PRN Reason: Res Rate </= 8 or 02 SAT < 92% Ondansetron HCl (Ondansetron 4 Mg/2 Ml Inj) 4 mg IV Q8H PRN PRN Reason: Nausea And Vomiting Oxytocin (Oxytocin 10 Unit/1 Ml Inj) 10 unit IM ONCE PRN PRN Reason: Uterine Bleeding Terbutaline Sulfate (Terbutaline 1 Mg/1 Ml Inj) 0.25 mg SUB-Q ONCE PRN PRN Reason: Hyperstimulation/Hypertonicity Review of Systems All systems: negative - Vital Signs Vital signs: Vital Signs Pulse BP 69 126/62 05/09/21 20:48 05/09/21 20:48 Temp Pulse Resp BP Pulse Ox 98.1 F 57 L 16 113/55 98 05/11/21 23:46 05/12/21 15:58 05/11/21 23:46 05/12/21 06:26 05/12/21 15:58 - Physical Exam Breasts: Positive: deferred Abdomen: Positive: soft (obese, gravid ) Uterus: Positive: enlarged (gravid ) Extremities: Positive: edema (trace) - Obstetrical FHR: auscultation normal Uterine Contraction Monitor Mode: External Cervical Dilatation: 0.5 Cervical Effacement Percentage: 50 station: -3 Uterine Contraction Pattern: Irregular Uterine Tone Measurement Phase: Resting Uterine Contraction Intensity: Mild Results Result Diagrams: 05/09/21 21:15 All other labs normal. Assessment and Plan A: IUP at 38w3d Gestational diabetes A1 Unfavorable Cervix despite multiple ripening agents H/o palpitations when supine s/p Cardiology consult RH negative status with Rhogam administration on 03/23/21 GBS positive P: Continue routine intrapartum care Cook cervical ripening balloon placed Initiate low dose pitocin Continue GBS prophylaxis Closely monitor maternal and status Continue q 4 accucheks in latent labor, and q 1 hr accucheks in active labor
[2021-05-13] MEDS ORDERED: METOCLOPRAMIDE 10 MG/2 ML INJ IV ONE (04:57)
[2021-05-13] MEDS ORDERED: FAMOTIDINE 20 MG/2 ML INJ IV ONE ×2 (04:57→07:22)
[2021-05-13] MEDS ORDERED: BICITRA ORAL LIQD 30ML PO ONE (04:57)
[2021-05-13] MEDS ORDERED: OXYTOCIN DRIP 30 UNITS/500 ML BAG IV SCH ×2 (05:00→13:26)
[2021-05-13] MEDS ORDERED: LACTATED RINGERS 1,000 ML IV SCH (05:00)
[2021-05-13 06:24] LABS: Basophils % (Auto) 0.2 % (0.0-1.8); Eosinophils % (Auto) 0.1 % (0.0-4.3); Hematocrit 31.4 % (30.3-42.9); Hemoglobin 10.6 gm/dl (10.1-14.3); Lymphocytes # (Auto) 1.6 K/mm3 (1.2-5.4); Lymphocytes % (Auto) 14.2 % (13.4-35.0); Mean Corpuscular HGB Conc 34 % (30-34); Mean Corpuscular Volume 92 fl (79-97); Monocytes # (Auto) 0.9 K/mm3 (0.0-0.8); Monocytes % (Auto) 7.7 % (0.0-7.3); Platelet Count 151 K/mm3 (140-440); Red Blood Count 3.41 M/mm3 (3.65-5.03)
[2021-05-13] MEDS: LACTATED RINGERS 1,000 ML IV SCH (06:59)
[2021-05-13] MEDS ORDERED: SODIUM CHLORIDE 0.9% 500 ML 500 ML IV SCH (07:00)
[2021-05-13] MEDS ORDERED: CARBOPROST TROMETHAMINE 250 MCG/1 ML INJ IM SCH (07:00)
[2021-05-13] MEDS ORDERED: ceFAZolin/Water 2 GM/20 ML 2 GM/20 ML SYRINGE IV NR (07:00)
[2021-05-13] MEDS ORDERED: BICITRA ORAL LIQD 30ML ONE (07:21)
[2021-05-13] MEDS ORDERED: METOCLOPRAMIDE 10 MG/2 ML INJ ONE (07:22)
--- NOTE | 2021-05-13 07:29 | Anesthesia Day of Surgery ---
Anesthesia Day of Surgery - Day of Surgery Patient Examined: Yes Patient H&P Reviewed: Yes Patient is NPO: Yes
--- NOTE | 2021-05-13 07:29 | Anesthesia Consultation ---
Anesthesia Consult and Med Hx Date of service: 05/13/21 - Airway Anesthetic Teeth Evaluation: Good ROM Head & Neck: Adequate Mental/Hyoid Distance: Adequate Mallampati Class: Class II Intubation Access Assessment: Probably Good - Pulmonary Exam CTA: Yes - Cardiac Exam Cardiac Exam: RRR - Pre-Operative Health Status ASA Pre-Surgery Classification: ASA3 Proposed Anesthetic Plan: Spinal - Pulmonary Hx Asthma: No COPD: No Hx Pneumonia: No - Cardiovascular System Hx Hypertension: No - Central Nervous System Hx Seizures: No (h/o of convulsions 2007) Hx Psychiatric Problems: No - Endocrine Hx Renal Disease: No Hx End Stage Renal Disease: No Hx Non-Insulin Dependent Diabetes: Yes Hx Hypothyroidism: No Hx Hyperthyroidism: No - Hematic Hx Anemia: No Hx Sickle Cell Disease: No - Other Systems Hx Alcohol Use: No Hx Obesity: Yes
--- NOTE | 2021-05-13 08:45 | Progress Note ---
Spinal Anesthesia Block - Spinal Anesthesia Block Start Time: 07:53 Stop Time: 08:10 Performed by:: JASEN SANDERS Procedure: Sitting, sterile chlorahexadine 0.5% prep/drape, 1% lidocaine skin local, 25G spinal needle + introducer at L3-4, L4-5. and L2-3 with no CSF after passing through ligamentum flavor. 18-gauge Workstreamer epidural needle advanced to [id number] with saline at 9 cm at L4-5. Epidural catheter advanced to 14 cm, negative aspiration for blood and csf, negative test dose 3 ml 1.5% lidocaine with epinephrine. tegaderm applied, 20 ml 2% lidocaine with epi, 4ml bicarb, and 50 mcg dexmedetomidine administered. t7 level verified prior to surgery. Patient tolerated procedure well.
[2021-05-13] MEDS ORDERED: KETOROLAC 30 MG/1 ML INJ ONE (09:27)
[2021-05-13] MEDS ORDERED: SODIUM BICARB 8.4% 50 MEQ/50 ML VIAL IV ONE (09:27)
[2021-05-13] MEDS ORDERED: OXYTOCIN 10 UNIT/1 ML INJ ONE (09:27)
[2021-05-13] MEDS ORDERED: BUPIVACAINE/PF (0.5%) 5 MG/1 ML 30 ML VIAL INFILTRATI ONE (09:27)
[2021-05-13] MEDS ORDERED: SODIUM CHLORIDE 0.9% 100 ML ONE (09:27)
[2021-05-13] MEDS ORDERED: ONDANSETRON 4 MG/2 ML INJ ONE ×2 (09:27→09:28)
[2021-05-13] MEDS ORDERED: dexAMETHasone 20 MG/5 ML VIAL ONE (09:27)
[2021-05-13] MEDS ORDERED: PHENYLEPHRINE 10 MG/1 ML INJ SDV ONE (09:28)
[2021-05-13] MEDS ORDERED: LIDOCAINE 2%/EPINEPHRINE 1:200,000 VIAL (20 ML) INFILTRATI ONE (09:30)
--- NOTE | 2021-05-13 09:49 | Procedure Note ---
OB Delivery Note - Delivery Date of Delivery: 05/13/21 Surgeon: MARCELLA ANGUIANO Estimated blood loss: other (1637 mL) - Section Preop diagnosis: arrest of dilation Postop diagnosis: same section procedure: section, primary low transverse Disposition: PACU Complications: intra-op hemorrhage, uterine atony Narrative: Please see operative report - Infant A at 1 minute: 9 at 5 minutes: 9 Infant Gender: Female (2810g (6lb 3oz) @ 0853 am)
--- NOTE | 2021-05-13 10:08 | Operative Report ---
Operative Report Operative Report: Date of procedure: May 13, 2021 Preoperative diagnosis: 1) IUP at 38w4d 2) Gestational Diabetes A1 3) Arrest of Dilation 4) Failed Induction of Labor 5) Obesity Postoperative diagnosis: Same 6) Oligohydramnios 7) Intraoperative Hemorrhage Procedure: Primary low transverse section Surgeon: Geneva Kaye M.D. Anesthesia: Regional Findings: 1) Viable female , Apgars 9 and 9, weight 2810 g, (6 lb 3 oz) in cephalic presentation 2) Large vessels coursing through the lower uterine segment 3) Normal-appearing uterus ovaries and tubes Estimated blood loss: 1637 mL by QBL IV fluids: 1300 mL Urine output: 100 mL, clear at the end of the procedure Drains: Riley to gravity Specimens: None Complications:None. Counts correct x 3 Disposition: Stable to PACU Indication for procedure: Pt is a 30 year old primigravida at 38w4d who underwent induction of labor secondary to gestational hypertension. She progressed to 2 cm despite cervidil, multiple doses of cytotec, pitocin and a Cook catheter placement. The decision was made to proceed with delivery. Operation in detail: After the risks, benefits, alternatives and complications were explained to the patient she gave informed consent for the procedure. She was subsequently taken to the operating room where regional anesthesia was acheived with some. She was placed in the dorsal supine position with leftward tilt and prepped and draped in a normal sterile fashion. heart tones were noted prior to incision. A timeout was performed. A Pfannenstiel skin incision was made with the knife and carried down to the layer of the fascia with the Bovie. The fascia was incised in the midline and the fascial incision was extended bilaterally with the Bovie. The fascial incision was then stretched. The rectus muscles were then in the midline and partially transected for adequate visualization. The peritoneum was then entered bluntly. The peritoneal incision was extended with good visualization of the bladder. The peritoneal incision was then stretched. An Nagi retractor was placed. The bladder blade was then placed. The vesicouterine peritoneum was grasped with smooth pick ups and incised with Metzenbaum scissors. A bladder flap was then created digitally and the bladder blade was replaced. A transverse incision was made in the lower uterine segment with a knife and extended bilaterally with the bandage scissors. Large vessels were noted in the lower uterine segment. Amniotomy was performed with egress of a small amount of clear fluid. head delivered with ease, followed by shoulders and body. bulb suctioned at delivery. Cord clamped and cut. handed to NICU staff in attendance. Cord blood was collected. The placenta was then delivered manually. The uterus was then exteriorized and cleared of all clots and debris. Uterus noted to be atonic. An additional 6 units of pitocin added to the IVFs. Uterine tone improved. The hysterotomy was then reapproximated with 0 Monocryl in a running locked fashion. A second layer of the same suture was used in imbricat ing fashion. The hysterotomy was inspected and hemostasis was noted. The gutters were irrigated and cleared of all clots and debris. The uterus was placed back into the peritoneal cavity. The hysterotomy was again inspected and noted to be hemostatic. Surgicel was placed over the hysterotomy. The Nagi retractor was removed. The peritoneum was reapproximated with 2-0 Vicryl in a running fashion incorporating the rectus muscles. Surgicel was placed over the rectus muscles. The fascia was reapproximated with 0 Vicryl in a running fashion. The subcutaneous tissue was reapproximated with 3-0 Vicryl in a running fashion. The skin was reapproximated with 3-0 Monocryl in a subcuticular fashion. The incision was then covered with steri strips and a pressure dressing. The procedure was then ended. The patient tolerated the procedure well and was taken to the PACU in stable condition. All instrument, lap, and needle counts were correct 3.
[2021-05-13] MEDS ORDERED: SODIUM CHLORIDE 0.9% 250ML 250 ML ONE ×2 (10:46→11:12)
[2021-05-13 10:57] LABS: Hematocrit 24.4 % (30.3-42.9); Hemoglobin 8.3 gm/dl (10.1-14.3); Mean Corpuscular HGB Conc 34 % (30-34); Mean Corpuscular Volume 92 fl (79-97); Red Blood Count 2.65 M/mm3 (3.65-5.03); Red Cell Distribution Width 13.8 % (13.2-15.2)
[2021-05-13] MEDS ORDERED: LANOLIN/ZINC/DIMETHICONE (LANSINOH) 7 GM TP PRN (13:26)
[2021-05-13] MEDS ORDERED: ONDANSETRON 4 MG/2 ML INJ IV PRN (13:26)
[2021-05-13] MEDS ORDERED: NALOXONE 0.4 MG/1 ML INJ IV PRN (13:26)
[2021-05-13] MEDS ORDERED: HYDROmorphone 1 MG/1 ML INJ IV PRN ×2 (13:26)
[2021-05-13] MEDS ORDERED: WITCH HAZEL/ GLYCERIN PAD TP PRN (13:26)
[2021-05-13] MEDS ORDERED: D5W/LACTATED RINGERS 1,000 ML IV SCH (13:26)
[2021-05-13] MEDS ORDERED: FERROUS SULFATE 325 MG TAB PO ONE (14:19)
[2021-05-13] MEDS: ceFAZolin/NS 1 GM/50 ML 1 GM/50 ML BAG IV SCH (16:36)
[2021-05-13] MEDS: oxyCODONE /ACETAMINOPHEN 5-325MG TAB PO PRN (21:30)
[2021-05-14] MEDS: ceFAZolin/NS 1 GM/50 ML 1 GM/50 ML BAG IV SCH (00:25)
[2021-05-14 00:47] LABS: Hematocrit 33.5 % (30.3-42.9); Hemoglobin 11.2 gm/dl (10.1-14.3)
[2021-05-14] MEDS: SIMETHICONE 80 MG CHEW TAB PO PRN ×4 (01:23→17:57)
[2021-05-14] MEDS: oxyCODONE /ACETAMINOPHEN 5-325MG TAB PO PRN ×4 (03:20→21:29)
[2021-05-14] MEDS ORDERED: MEASLES, MUMPS & RUBELLA 12,500 UNIT/0.5 ML VACCINE SUB-Q ONE (06:00)
[2021-05-14] MEDS ORDERED: TETANUS,DIPH,PERTUSS(ACELL) VACCINE 0.5 ML SYRINGE IM ONE (06:00)
[2021-05-14] MEDS: FERROUS SULFATE 325 MG TAB PO SCH (10:38)
--- NOTE | 2021-05-14 11:18 | Post Anesthesia Evaluation ---
- Post Anesthesia Evaluation Patient Participated: Yes Airway Patent: Yes Stable Respiratory Function: Yes Nausea/Vomiting: No Temp > 96.8F: Yes Pain Manageable: Yes Adequeate Hydration: Yes Anesthesia Complications: No Block Receding Appropriately: Yes
[2021-05-14] MEDS: MAGNESIUM HYDROXIDE (MOM) ORAL LIQD UDC PO SCH ×2 (14:47→21:26)
--- NOTE | 2021-05-14 15:34 | Progress Note ---
Assessment and Plan - Patient Problems (1) Gestational diabetes Current Visit: Yes Status: Acute Qualifiers: Gestational diabetes mellitus control: diet-controlled Trimester: third trimester Qualified Code(s): O24.410 - Gestational diabetes mellitus in , diet controlled Plan to address problem: Continue to monitor blood glucose levels per orders (2) Status post primary low transverse section Current Visit: Yes Status: Acute Plan to address problem: Continue routine PP orders Keep dressing clean and dry Anticipate d/c home in 24-48 hrs if stable Subjective - Subjective Date of service: 05/14/21 Principal diagnosis: S/P Primary C/S; POD#1 Interval history: Pt is a 30 year old primigravida at 38w4d who underwent induction of labor secondary to gestational hypertension. She progressed to 2 cm despite cervidil, multiple doses of cytotec, pitocin and a Cook catheter placement. The decision was made to proceed with delivery. Patient reports: appetite normal, voiding normally, pain well controlled (with medications), flatus, ambulating normally, no bowel movement : doing well, bottle feeding (and ) Objective - Vital Signs Latest vital signs: Vital Signs Temp Pulse Resp BP BP Pulse Ox 05/14/21 08:02 98.9 F 58 L 18 114/62 98 05/14/21 05:00 98.9 F 72 18 114/76 100 05/14/21 00:26 98.2 F 60 20 106/68 96 05/13/21 21:05 99.4 F 56 L 20 117/59 97 Intake and Output 05/13/21 05/14/21 05/14/21 23:59 07:59 15:59 Intake Total 300 1240 Output Total 1900 1500 Balance -1600 -260 Intake: IV 1000 D5lr 1,000 ml @ 125 mls/ 1000 hr IV DIRECT NUSRAT Rx#: [id number] Oral 300 240 Output: Urine 1900 1500 Indwelling Catheter 1900 Void 1500 Other: Total, Intake Amount 300 240 Total, Output Amount 900 900 # Voids Void 3 - Exam Breasts: Present: normal Cardiovascular: Present: Regular rate Lungs: Present: Normal air movement Abdomen: Present: soft, tenderness Uterus: Present: firm, fundal height below umbilicus (U-2) Extremities: Present: edema (slight in BLE) Incision: Present: dry, warm (steri-strips intact, no drainage or bleeding noted) - Labs Labs: Abnormal lab results 05/13/21 Range/Units 05:20 Crossmatch See Detail
[2021-05-14] MEDS: IBUPROFEN 600 MG TAB PO SCH (17:57)
[2021-05-15] MEDS: oxyCODONE /ACETAMINOPHEN 5-325MG TAB PO PRN (03:23)
[2021-05-15] MEDS: IBUPROFEN 600 MG TAB PO SCH (04:47)
--- NOTE | 2021-05-15 07:27 | Progress Note ---
Assessment and Plan A: POD#2 s/p primary section at 38 wks secondary to failed induction at 38 wks, GDM Acute blood loss anemia s/p 2 units PRBCs Obesity P: Begin lactulose Routine postop care Discharge later today with follow up in 2 wks for an incision check Subjective - Subjective Date of service: 05/15/21 Principal diagnosis: S/P Primary C/S; POD#2 Interval history: No issues overnight. + flatus. No bowel movement. Pt would like to go home today if possible. Patient reports: appetite normal, voiding normally, pain well controlled, flatus, ambulating normally, no bowel movement : doing well Objective - Vital Signs Latest vital signs: Vital Signs Temp Pulse Resp BP BP Pulse Ox 05/15/21 00:00 98.6 F 72 16 114/78 05/14/21 15:37 98.2 F 69 18 113/64 98 05/14/21 08:02 98.9 F 58 L 18 114/62 98 Intake and Output 05/14/21 05/15/21 05/15/21 22:59 06:59 14:59 Intake Total 1020 200 Balance 1020 200 Intake: Oral 200 Intake, Free Water 1020 Other: Total, Intake Amount 200 # Voids Void 1 1 - Exam Breasts: Present: deferred Abdomen: Present: soft (obese) Uterus: Present: fundal height below umbilicus Extremities: Present: edema (1+) Incision: Present: intact (with steristrips ) - Labs Labs: Abnormal lab results 05/13/21 Range/Units 05:20 Crossmatch See Detail
--- NOTE | 2021-05-15 07:31 | Discharge Summary ---
Providers - Providers Date of Admission: 05/09/21 20:21 Date of discharge: 05/15/21 Attending physician: ROSAURA RAMIREZ 05/13/21 13:26 Consult to Director Skills [CONS] Routine Reason For Exam: Primary care physician: ROSAURA RAMIREZ Hospitalization Reason for admission: induction of labor Delivery: Procedure: section, primary low transverse Procedure details: Please see operative report Episiotomy: none Laceration: none Incision: intact complications: transfusion Discharge diagnosis: IUP at term delivered [place] baby: female Hospital course: This patient was admitted to labor and delivery for induction of labor secondary to gestational diabetes at 38 weeks. She ultimately underwent a primary section due to failed induction which she tolerated well. The section was complicated by acute blood loss anemia for which she received 2 units of packed red blood cells with appropriate rise in hemoglobin and hematocrit. The remainder of her postoperative course was uncomplicated and she met discharge criteria on postoperative day #2. She will follow-up in the office in 2 weeks for an incision check. Condition at discharge: Stable Disposition: DC-01 TO HOME OR SELFCARE - Discharge Diagnoses (1) Obesity (BMI 35.0-39.9 without comorbidity) Status: Acute (2) Term of female Status: Acute (3) Gestational diabetes Status: Acute Qualifiers: Gestational diabetes mellitus control: diet-controlled Trimester: third trimester Qualified Code(s): O24.410 - Gestational diabetes mellitus in , diet controlled (4) Rh negative status during Status: Acute Qualifiers: Trimester: third trimester Qualified Code(s): O26.893 - Other specified related conditions, third trimester; Z67.91 - Unspecified blood type, Rh negative (5) Status post primary low transverse section Status: Acute Plan - Discharge Medications Prescriptions: Ferrous Sulfate [Feosol 325 MG tab] 325 mg PO QDAY #30 tablet Ibuprofen [Motrin] 800 mg PO Q8HR PRN #30 tablet PRN Reason: Pain, Moderate (4-6) oxyCODONE /ACETAMINOPHEN [Percocet 5/325] 1 tab PO Q6HR PRN #40 tablet PRN Reason: Pain - Provider Discharge Summary Activity: routine, no sex for 6 weeks, no heavy lifting 4 weeks, no strenuous exercise Diet: routine Instructions: routine Additional instructions: [] Smoking cessation referral if applicable(refer to patient education folder for contact #) [] Refer to [facility] Booklet Call your doctor immediately for: * Fever > 100.5 * Heavy vaginal bleeding ( >1 pad per hour) * Severe persistent headache * Shortness of breath * Reddened, hot, painful area to leg or breast * Drainage or odor from incision. * Keep incision clean and dry at all times and follow doctor's instructions regarding bathing/showering - Follow up plan Follow up: ALAN MACIEL CNM [Advanced Practice Nurse] - 14 Days (please call for incision check )
[2021-05-15] MEDS ORDERED: LACTULOSE 20 GM/30 ML ORAL LIQD PO SCH (08:00)
[2021-05-15] MEDS: FERROUS SULFATE 325 MG TAB PO SCH (08:57)
[2021-05-15 15:19] VITALS: BP 124/67
== END 2021-05-15 12:30 | disposition home or self-care (01) | DRG 765 ==
LOC: TRG 20:17 → LD 20:21 → OB 05-13 12:40
PROVIDERS: ADMIT Obstetrics & Gynecology; ATTEND Obstetrics & Gynecology
PROC: 10D00Z1 Extraction of Products of Conception, Low, Open Approach (ICD-10-PCS; principal; 2021-05-13)
PROC: 30233N1 Transfusion of Nonautologous Red Blood Cells into Peripheral Vein, Percutaneous Approach (ICD-10-PCS; 2021-05-13)
PROC: 3E0234Z Introduction of Serum, Toxoid and Vaccine into Muscle, Percutaneous Approach (ICD-10-PCS; 2021-05-14)
PROC: 3E0134Z Introduction of Serum, Toxoid and Vaccine into Subcutaneous Tissue, Percutaneous Approach (ICD-10-PCS; 2021-05-14)
DX: O24.429 Gestational diabetes mellitus in childbirth, unspecified control (principal); O41.03X0 Oligohydramnios, third trimester, not applicable or unspecified; D62 Acute posthemorrhagic anemia; O72.1 Other immediate postpartum hemorrhage; O62.0 Primary inadequate contractions; Z3A.38 38 weeks gestation of pregnancy; Z37.0 Single live birth; O99.214 Obesity complicating childbirth; O26.893 Other specified pregnancy related conditions, third trimester; Z67.91 Unspecified blood type, Rh negative; Z20.822 Contact with and (suspected) exposure to COVID-19; Z23 Encounter for immunization
CPT/HCPCS: 36415; 36430; 59200; 82962; 85014; 85018; 85025; 85027; 85461; 86592; 86850; 86870; 86900; 86901; 86920; 88307; 90471; 90715; 99211; G0378; A6250; G0463; J0290; J0595; J0690; J1100; J1170; J1885; J2370; J2405; J2590; J2765; J2790; J3490; J7120; J7121; P9016; U0003

== ENCOUNTER 2021-12-22 10:37 | Emergency (ER) | payer MEDICAID ==
--- NOTE | 2021-12-22 13:09 | Emergency Department Report ---
ED HPI - General Chief complaint: Abdominal Pain Stated complaint: ABD PAIN,PREG Time Seen by Provider: 12/22/21 12:57 Source: patient Mode of arrival: Ambulatory Limitations: No Limitations - History of Present Illness Initial comments: 31-year-old -[place] female presents to the emergency room for the abdominal pain that started about 4 AM. She states that it is located lower abdominal pain with dysuria. She states that she is last menstrual period she is aware of is 09/19/2022. Patient is 2 para 1. Denies any vaginal discharge vaginal bleeding no hematuria no constipation. States that she has a 7-month-old at home. MD Complaint: abdominal pain -: This morning Time: 04:00 Radiation: suprapubic Severity scale (0 -10): 5 Improves with: none Associated symptoms: dysuria. denies: nausea/vomiting, vaginal bleeding, vaginal discharge, abdominal pain, dysparuenia, rash, seizure Vaginal bleeding: none :: Yes OB History - Current : no complications - Related Data Previous Rx's Medication Instructions Recorded Last Taken Type Ferrous Sulfate [Feosol 325 MG tab] 325 mg PO QDAY #30 tablet 05/15/21 Unknown Rx Ibuprofen [Motrin] 800 mg PO Q8HR PRN #30 tablet 05/15/21 Unknown Rx oxyCODONE /ACETAMINOPHEN [Percocet 1 tab PO Q6HR PRN #40 tablet 05/15/21 Unknown Rx 5/325] Allergies Allergy/AdvReac Type Severity Reaction Status Date / Time No Known Allergies Allergy Verified 05/05/21 12:06 ED Review of Systems ROS: Stated complaint: ABD PAIN,PREG Other details as noted in HPI Comment: All other systems reviewed and negative ED Past Medical Hx - Past Medical History Hx Hypertension: No Hx Congestive Heart Failure: No Hx Diabetes: No (GDM) Hx Deep Vein Thrombosis: No Hx Renal Disease: No Hx Sickle Cell Disease: No Hx Seizures: No (h/o of convulsions 2007) Hx Asthma: No Hx COPD: No Hx HIV: No - Social History Smoking Status: Never Smoker - Medications Home Medications: Home Medications Medication Instructions Recorded Confirmed Last Taken Type Ferrous Sulfate [Feosol 325 MG tab] 325 mg PO QDAY #30 tablet 05/15/21 Unknown Rx Ibuprofen [Motrin] 800 mg PO Q8HR PRN #30 tablet 05/15/21 Unknown Rx oxyCODONE /ACETAMINOPHEN [Percocet 1 tab PO Q6HR PRN #40 tablet 05/15/21 Unknown Rx 5/325] ED Physical Exam - General Limitations: No Limitations General appearance: alert - Head Head exam: Present: atraumatic, normocephalic - Eye Eye exam: Present: normal appearance - ENT ENT exam: Present: mucous membranes moist - Neck Neck exam: Present: normal inspection - Respiratory Respiratory exam: Present: normal lung sounds bilaterally. Absent: respiratory distress - Cardiovascular Cardiovascular Exam: Present: regular rate, normal rhythm, normal heart sounds - GI/Abdominal GI/Abdominal exam: Present: soft, tenderness. Absent: distended - Extremities Exam Extremities exam: Present: normal inspection - Back Exam Back exam: Present: normal inspection - Neurological Exam Neurological exam: Present: alert, oriented X3, normal gait - Psychiatric Psychiatric exam: Present: normal affect, normal mood - Skin Skin exam: Present: warm, dry, intact, normal color. Absent: rash ED Course Vital Signs 12/22/21 10:48 Temperature 98.1 F Pulse Rate 84 Respiratory 18 Rate Blood Pressure 139/79 O2 Sat by Pulse 100 Oximetry ED Medical Decision Making - Lab Data Result diagrams: 12/22/21 13:09 12/22/21 13:09 - EKG Data 12/22/21 15:00 Lab Results 12/22/21 12/22/21 12/22/21 Range/Units 13:09 13:09 13:09 WBC 10.9 (4.5-11.0) K/mm3 RBC 3.94 (3.65-5.03) M/mm3 Hgb 12.6 (10.1-14.3) gm/dl Hct 36.0 (30.3-42.9) % MCV 91 (79-97) fl MCH 32 (28-32) pg MCHC 35 H (30-34) % RDW 13.5 (13.2-15.2) % Plt Count 213 (140-440) K/mm3 Lymph % (Auto) 18.2 (13.4-35.0) % Valley % (Auto) 6.6 (0.0-7.3) % Eos % (Auto) 0.2 (0.0-4.3) % Baso % (Auto) 0.4 (0.0-1.8) % Lymph # (Auto) 2.0 (1.2-5.4) K/mm3 Valley # (Auto) 0.7 (0.0-0.8) K/mm3 Eos # (Auto) 0.0 (0.0-0.4) K/mm3 Baso # (Auto) 0.0 (0.0-0.1) K/mm3 Seg Neutrophils % 74.6 H (40.0-70.0) % Seg Neutrophils # 8.1 H (1.8-7.7) K/mm3 Sodium 135 L (137-145) mmol/L Potassium 4.4 (3.6-5.0) mmol/L Chloride 101.9 (98-107) mmol/L Carbon Dioxide 22 (22-30) mmol/L Anion Gap 16 mmol/L BUN 10 (7-17) mg/dL Creatinine 0.9 (0.6-1.2) mg/dL Estimated GFR > 60 ml/min BUN/Creatinine Ratio 11 % Glucose 90 (65-100) mg/dL Calcium 9.9 (8.4-10.2) mg/dL Total Bilirubin 0.30 (0.1-1.2) mg/dL AST 18 (5-40) units/L ALT 12 (7-56) units/L Alkaline Phosphatase 74 (35-129) units/L Total Protein 8.2 (6.3-8.2) g/dL Albumin 4.1 (3.9-5) g/dL Albumin/Globulin Ratio 1.0 % HCG, Quant [id number] H (0-4) mIU/mL Blood Type Antibody Screen Ord Rhogam Gestat Weeks WEEKS 12/22/21 Range/Units 13:09 WBC (4.5-11.0) K/mm3 RBC (3.65-5.03) M/mm3 Hgb (10.1-14.3) gm/dl Hct (30.3-42.9) % MCV (79-97) fl MCH (28-32) pg MCHC (30-34) % RDW (13.2-15.2) % Plt Count (140-440) K/mm3 Lymph % (Auto) (13.4-35.0) % Valley % (Auto) (0.0-7.3) % Eos % (Auto) (0.0-4.3) % Baso % (Auto) (0.0-1.8) % Lymph # (Auto) (1.2-5.4) K/mm3 Valley # (Auto) (0.0-0.8) K/mm3 Eos # (Auto) (0.0-0.4) K/mm3 Baso # (Auto) (0.0-0.1) K/mm3 Seg Neutrophils % (40.0-70.0) % Seg Neutrophils # (1.8-7.7) K/mm3 Sodium (137-145) mmol/L Potassium (3.6-5.0) mmol/L Chloride (98-107) mmol/L Carbon Dioxide (22-30) mmol/L Anion Gap mmol/L BUN (7-17) mg/dL Creatinine (0.6-1.2) mg/dL Estimated GFR ml/min BUN/Creatinine Ratio % Glucose (65-100) mg/dL Calcium (8.4-10.2) mg/dL Total Bilirubin (0.1-1.2) mg/dL AST (5-40) units/L ALT (7-56) units/L Alkaline Phosphatase (35-129) units/L Total Protein (6.3-8.2) g/dL Albumin (3.9-5) g/dL Albumin/Globulin Ratio % HCG, Quant (0-4) mIU/mL Blood Type A NEGATIVE Antibody Screen Negative Ord Rhogam Gestat Weeks >=11 WEEKS - Medical Decision Making 31-year-old -[place] female presents to the emergency room for the abdominal pain that started about 4 AM. She states that it is located lower abdominal pain with dysuria. She states that she is last menstrual period she is aware of is 09/19/2022. Patient is 2 para 1. Denies any vaginal discharge vaginal bleeding no hematuria no constipation. States that she has a 7-month-old at home. Critical care attestation.: If time is entered above; I have spent that time in minutes in the direct care of this critically ill patient, excluding procedure time. ED Disposition Clinical Impression: Subchorionic hematoma in first trimester, Pelvic pain Disposition: HOME / SELF CARE / HOMELESS Is pt being admited?: No Does the pt Need Aspirin: No Condition: Stable Instructions: Abdominal Pain (ED), Subchorionic Hematoma Additional Instructions: You are receiving your RhoGam now as you have a subchronic hemorrhage which is bleeding from the reattachment of the embryo. I understand the DC no blood but there is microscopic blood that could not transpire with this hemorrhage. Urinalysis is negative for any infection. You can take Tylenol only for pain. It is very important you follow-up with your [facility]. Your ultrasound shows that you are 9 weeks and 4 days . Be sure to start your vitamins. Increase your water intake to greater than 32 ounces daily. Watch your sodium intake watch your carbohydrate intake. Referrals: PRIMARY CARE,MD [Primary Care Provider] - 3-5 Days Your, [facility] [Other] - 3-5 Days Forms: Work/School Release Form(ED), Accompanied Note Time of Disposition: 18:26
[2021-12-22 13:32] LABS: Basophils % (Auto) 0.4 % (0.0-1.8); Eosinophils % (Auto) 0.2 % (0.0-4.3); Hemoglobin 12.6 gm/dl (10.1-14.3); Lymphocytes % (Auto) 18.2 % (13.4-35.0); Mean Corpuscular HGB Conc 35 % (30-34); Mean Corpuscular Volume 91 fl (79-97); Monocytes # (Auto) 0.7 K/mm3 (0.0-0.8); Monocytes % (Auto) 6.6 % (0.0-7.3); Platelet Count 213 K/mm3 (140-440); Red Blood Count 3.94 M/mm3 (3.65-5.03); Red Cell Distribution Width 13.5 % (13.2-15.2)
[2021-12-22 13:45] LABS: Alanine Aminotransferase 12 units/L (7-56); Albumin 4.1 g/dL (3.9-5); BUN/Creatinine Ratio 11; Blood Urea Nitrogen 10 mg/dL (7-17); Calcium 9.9 mg/dL (8.4-10.2); Hemolysis Index 11
[2021-12-22 15:58] LABS: Bilirubin,Urine NEG (Negative); Blood,Urine NEG (Negative); Color,Urine Yellow (Yellow); Protein,Urine <15 mg/dL mg/dL (Negative); Urobilinogen,Urine < 2.0 mg/dL (<2.0)
--- NOTE | 2021-12-22 16:48 | Ultrasound Report ---
ULTRASOUND PELVIS INDICATION: Pelvic pain LMP 09/18/2022. TECHNIQUE: Transabdominal. Duplex Color Doppler used: Yes. COMPARISON: None available FINDINGS: Uterus: Present. Size: 16 x 7.4 x 9 cm. Endometrial complex: Early viable intrauterine dated 9 weeks 4 days by ultrasound. he art tones are 165 bpm. A small subchorionic hemorrhage is noted. Mass lesions: None. Additional findings: None. Right Ovary -- Normal. Blood flow: Normal. Cyst or mass: 2.4 cm mildly complex cyst. Left Ovary-- Normal. Blood flow: Normal. Cyst or mass: None. Urinary Bladder: Normal. Free Fluid: None. Additional Findings: None. IMPRESSION: 1. Early viable intrauterine dated 9 weeks 4 days by ultrasound. 2. Small subchorionic hemorrhage. 3. Probable corpus luteum cyst right ovary. Signer Name: Ryan Restrepo MD Signed: 12/22/2021 4:43 PM Workstation Name: [id number]
[2021-12-22 17:43] LABS: Bacteria,Urine 2+ /HPF (Negative); Mucus,Urine FEW /HPF
[2021-12-22 19:25] VITALS: BP 128/70
== END 2021-12-22 19:24 | disposition home or self-care (01) ==
LOC: ED 10:37
DX: O20.8 Other hemorrhage in early pregnancy (principal); Z79.899 Other long term (current) drug therapy; Z3A.09 9 weeks gestation of pregnancy
CPT/HCPCS: 36415; 76801; 80053; 81001; 84702; 85025; 85461; 86850; 86900; 86901; 87086; 96372; 99284; J2790; 36430